=== PATIENT | male | born 1980 | race Caucasian/White ===

== ENCOUNTER 2017-09-27 22:06 | Emergency (ER) | payer OTHER ==
[2017-09-28] MEDS: HYDROCODONE/APAP (10/325) TAB PO (01:07)
== END 2017-09-28 03:42 | disposition home or self-care (01) ==
LOC: FTE 22:06
DX: R07.81 Pleurodynia (principal)
CPT/HCPCS: 71100; 99283-25

== ENCOUNTER 2018-07-19 16:31 | Emergency (ER) | payer OTHER ==
[2018-07-19] MEDS: SOD CHLORIDE 0.9% 1,000 ML IV (19:08)
[2018-07-19] MEDS: ONDANSETRON 4 MG INJ IV (19:08)
[2018-07-19] MEDS: KETOROLAC 15 MG INJ IV (19:09)
[2018-07-19 19:19] LABS: ADD MAN DIFF? NO
[2018-07-19 19:20] LABS: BASOPHILS % 0.4 % (0.0-2.0); EOSINOPHILS # 0.2 10^3/ul (0.0-0.5); EOSINOPHILS % 2.6 % (0.0-7.0); HEMATOCRIT 43.6 % (42.0-52.0); HEMOGLOBIN 14.3 g/dl (14.0-18.0); LYMPHOCYTES # 2.1 10^3/ul (0.8-2.9); LYMPHOCYTES % 27.8 % (15.0-51.0); MEAN CORPUSCULAR HEMOGLOBIN 30.8 pg (29.0-33.0); MEAN CORPUSCULAR HGB CONC 32.8 g/dl (32.0-37.0); MEAN CORPUSCULAR VOLUME 93.8 fl (82.0-101.0); MEAN PLATELET VOLUME 9.6 fl (7.4-10.4); MONOCYTE # 0.4 10^3/ul (0.3-0.9); MONOCYTES % 5.8 % (0.0-11.0); NEUTROPHIL # 4.7 10^3/ul (1.6-7.5); PLATELET COUNT 247 10^3/UL (140-415); RED BLOOD COUNT 4.65 10^6/ul (4.70-6.10); RED CELL DISTRIBUTION WIDTH 12.3 % (11.5-14.5)
[2018-07-19 19:20] LABS: WHITE BLOOD COUNT 7.4 10^3/ul (4.8-10.8)
[2018-07-19 19:37] LABS: ALANINE AMINOTRANSFERASE 19 IU/L (13-69); ALBUMIN 4.6 g/dl (3.3-4.9); ALBUMIN/GLOBULIN RATIO 1.31; ALKALINE PHOSPHATASE 67 IU/L (42-121); ANION GAP 15 (5-13); ASPARTATE AMINO TRANSFERASE 25 IU/L (15-46); BILIRUBIN,INDIRECT 0.1 mg/dl (0-1.1); BILIRUBIN,TOTAL 0.1 mg/dl (0.2-1.3); BLOOD UREA NITROGEN 12 mg/dl (7-20); CALCIUM 9.3 mg/dl (8.4-10.2); CARBON DIOXIDE 28 mmol/L (21-31); CHLORIDE 100 mmol/L (97-110); CREATININE 0.77 mg/dl (0.61-1.24); Estimated GFR > 60 mL/min (>60); GLUCOSE 92 mg/dl (70-220); SODIUM 143 mmol/L (135-144); TOTAL PROTEIN 8.1 g/dl (6.1-8.1)
[2018-07-19] MEDS: DIPHENHYDRAMINE 50 MG INJ IV (20:20)
[2018-07-19] MEDS: morphine 2 MG INJ IV ×2 (20:20→21:15)
[2018-07-19 20:43] LABS: ADD UMIC YES; UR ASCORBIC ACID NEGATIVE (NEGATIVE); UR BACTERIA FEW /HPF (NONE SEEN); UR BILIRUBIN (Dip) NEGATIVE (NEGATIVE); UR BLOOD (Dip) 2+ mg/dL (NEGATIVE); UR CLARITY CLEAR (CLEAR); UR COLOR YELLOW (YELLOW); UR GLUCOSE (Dip) NEGATIVE (NEGATIVE); UR KETONES (Dip) NEGATIVE (NEGATIVE); UR LEUKOCYTE ESTERASE (Dip) NEGATIVE Leu/ul (NEGATIVE); UR NITRITE (Dip) NEGATIVE (NEGATIVE); UR RBC 65 /HPF (0-5); UR SPECIFIC GRAVITY (Dip) 1.017 (1.003-1.030); UR TOTAL PROTEIN (Dip) NEGATIVE (NEGATIVE); UR UROBILINOGEN (Dip) 1+ mg/dL (NEGATIVE); UR WBC 1 /HPF (0-5)
== END 2018-07-19 21:40 | disposition home or self-care (01) ==
LOC: FTE 16:31
DX: R10.9 Unspecified abdominal pain (principal); F17.210 Nicotine dependence, cigarettes, uncomplicated
CPT/HCPCS: 36415; 74176; 80053; 81001; 85025; 96374; 96375; 96376; 99285-25